=== PATIENT | female | born 1970 | race Caucasian/White ===

== ENCOUNTER → 2016-09-07 | Outpatient (CLI) | payer MEDICAID | LOC: CIMAGING 16:09 | PROVIDERS: ATTEND Family Medicine | DX: N88.8 Other specified noninflammatory disorders of cervix uteri (principal) | CPT/HCPCS: 76856-PO ==

== ENCOUNTER → 2016-10-01 | Outpatient (CLI) | payer MEDICAID | LOC: FIMAGING 12:17 | PROVIDERS: ATTEND Family Medicine | DX: Z12.31 Encounter for screening mammogram for malignant neoplasm of breast (principal) | CPT/HCPCS: G0202 ==

== ENCOUNTER 2017-01-16 12:34 | Outpatient (CLI) | payer MEDICAID ==
[~2017-01-16 12:34] MED LIST: DEXMEDETOMIDINE HCL 200 MCG in NS 50 ML IV ONE
[2017-01-16] MEDS ORDERED: FLUMAZENIL 0.5 MG/5 ML MDV IVP ONE (13:16)
[2017-01-16] MEDS ORDERED: MIDAZOLAM 2 MG/2 ML VIAL ONE (13:16)
[2017-01-16] MEDS ORDERED: NALOXONE HCL 0.4 MG/ML INJ ONE (13:16)
[2017-01-16] MEDS ORDERED: fentaNYL 100 MCG/2 ML INJ ONE (13:17)
[2017-01-16 15:21] VITALS: PULSE 67; TEMP 97.5
[2017-01-16 16:26] VITALS: RESP 14
[2017-01-16 18:05] VITALS: O2SAT 96
[2017-01-16 18:09] VITALS: BP 132/94
== END 2017-01-16 18:00 | disposition home or self-care (01) ==
LOC: FIMAGING 12:34 → MERGE 13:00 → FIMAGING 18:00
DX: Z53.8 Procedure and treatment not carried out for other reasons (principal); R22.31 Localized swelling, mass and lump, right upper limb; M62.81 Muscle weakness (generalized)
CPT/HCPCS: J2250; J2310; J3010

== ENCOUNTER → 2017-02-18 | Outpatient (CLI) | payer MEDICAID ==
[~2017-02-18] MED LIST changes: +CALCIUM CHLORIDE 1 GM/10 ML INJ ONE; +DEXAMETHASONE 10 MG/ML VIAL ONE; -DEXMEDETOMIDINE HCL 200 MCG in NS 50 ML IV ONE; +ONDANSETRON 4 MG/2 ML VIAL ONE; +PHENYLEPHRINE 10 MG/ML SDV ONE; +PROPOFOL/EMULSION 500 MG/50 ML BOTTLE IV ONE; +SODIUM CL 0.9% 20 ML VIAL ONE; +fentaNYL 100 MCG/2 ML INJ IVP PRN; +fentaNYL 100 MCG/2 ML INJ ONE
--- NOTE | 2017-02-18 17:19 | POSTANESTH ---
Post Anesthetic Evaluation Cardiovascular Status: Normal, Stable, Similar to Pre-Op Cond Respiratory Status: Normal, Stable, Similar to Pre-op Cond. Level of Consciousness/Mental Status: Can Participate in Eval Pain Control: Adequate, Prn Tx Ordered Nausea/Vomiting Control: Adequate, Prn Tx Ordered Complications Possibly Related to Anesthesia: None Noted
[2017-02-18 17:38] VITALS: TEMP 97.5
[2017-02-18 17:42] VITALS: PULSE 73; O2SAT 100
[2017-02-18 17:43] VITALS: BP 138/72; RESP 19
== END ==
LOC: FSGY 12:24
DX: M19.031 Primary osteoarthritis, right wrist (principal); M51.37 Other intervertebral disc degeneration, lumbosacral region; M22.41 Chondromalacia patellae, right knee
CPT/HCPCS: J1100; J2370; J2405; J2704; J3010

== ENCOUNTER 2017-03-28 14:57 | Emergency (ER) | payer MEDICAID ==
[2017-03-28 15:14] VITALS: RESP 18
[2017-03-28 15:52] LABS: % IMMATURE GRANULYOCYTES 0.5 % (0.0-1.1); ABSOLUTE IMMATURE GRANULOCYTES 0.05 10^3/uL (0.00-0.10); ADD DIFF? NO; ADD MORPH? NO; ADD SCAN? NO; ATYPICAL LYMPHOCYTE FLAG 0 (0-99); FRAGMENT RBC FLAG 0 (0-99); HEMATOCRIT 45.4 % (38.0-47.0); HEMOGLOBIN 14.9 g/dL (12.6-16.3); LEFT SHIFT FLG 10 (0-99); LIPEMIA HEMOLYSIS FLAG 80 (0-99); MEAN CELL HEMOGLOBIN 30.7 pg (27.9-34.1); MEAN CELL HEMOGLOBIN CONCENTR. 32.8 g/dL (32.4-36.7); MEAN CELL VOLUME 93.6 fL (81.5-99.8); MEAN PLATELET VOLUME 12.5 fL (8.7-11.7); PLATELET CLUMPS FLAG 10 (0-99); PLATELET COUNT 194 10^3/uL (150-400); RED BLOOD CELL COUNT 4.85 10^6/uL (4.18-5.33); RED CELL DISTRIBUTION WIDTH 13.3 % (11.5-15.2)
[2017-03-28 15:56] LABS: ANION GAP 16 mEq/L (8-16); CALCIUM 9.3 mg/dL (8.5-10.4); CARBON DIOXIDE 24 mEq/l (22-31); CHLORIDE 101 mEq/L (97-110); CREATININE 0.8 mg/dL (0.6-1.0); ETHANOL SERUM < 10 mg/dL (0-10); GLOMERULAR FILTRATION RATE > 60; GLUCOSE 80 mg/dL (70-100); SODIUM 141 mEq/L (134-144)
--- NOTE | 2017-03-28 16:21 | EDPHY ---
H & P Stated Complaint: SI, voluntary Time Seen by Provider: 03/28/17 15:37 HPI/ROS: CHIEF COMPLAINT: Suicidal thoughts, chronic pain HISTORY OF PRESENT ILLNESS: The patient presents to the ED with suicidal thoughts without a specific plan. She attributes these thoughts to a general decline in her health and living with chronic pain. The patient is currently under the care of [facility]. She currently is taking Prozac and hydroxyzine for depression. She uses Ambien as needed for insomnia and Xanax for anxiety. The patient has had a cough for the past several days with nasal congestion. The patient denies any intentional overdose. She has no complaints of acute abdominal pain. She denies additional acute complaints. REVIEW OF SYSTEMS: A comprehensive 10 point review of systems is otherwise negative aside from elements mentioned in the history of present illness. 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 , HTN, hypothyroid, asthma - Social History Smoking Status: Never smoked - Physical Exam Exam: General Appearance: Alert, no distress Eyes: Pupils equal and round no pallor or injection ENT, Mouth: Mucous membranes moist Respiratory: There are no retractions, lungs are clear to auscultation Cardiovascular: Regular rate and rhythm Gastrointestinal: Abdomen is soft and nontender, no masses, bowel sounds normal Neurological: A&O, normal motor function, normal sensory exam, normal cranial nerves Skin: Warm and dry, no rashes Musculoskeletal: Neck is supple nontender Extremities: symmetrical, full range of motion Psychiatric: Alert and oriented x3, non agitated, cooperative, normal speech pattern, appropriate thought content, reports depression/anxiety and suicidal thoughts. Denies suicidal plan. Constitutional: Initial Vital Signs Temperature (C) 37.2 C 03/28/17 14:57 Heart Rate 74 03/28/17 14:57 Respiratory Rate 18 03/28/17 14:57 Blood Pressure 110/63 03/28/17 14:57 O2 Sat (%) 99 03/28/17 14:57 O2 Delivery Mode Room Air Allergies/Adverse Reactions: acetaminophen [From Vicodin] Allergy (Verified 02/13/17 15:05) hydrocodone [From Vicodin] Allergy (Verified 02/13/17 15:05) hydrocodone bitartrate [From Vicodin] Allergy (Verified 02/13/17 15:05) CT Contrast Allergy (Uncoded 12/10/16 16:31) Home Medications: Medication Instructions Recorded Sennosides [Senna] 8.6 mg PO HS 04/27/15 Lisinopril [Zestril] 5 mg PO DAILY 04/28/15 FLUoxetine HCL [Fluoxetine HCl] 60 mg PO DAILY 11/30/15 Divalproex ER [Depakote ER 500 MG 500 mg PO BID 11/07/16 (*)] Furosemide [Lasix 20 MG (*)] 20 mg PO DAILY 11/07/16 Lidocaine 5% [Lidoderm 5% Patch 1 ea TD DAILY 11/07/16 (*)] Ondansetron Odt [Zofran Odt 4 mg 4 mg PO Q4 PRN 11/07/16 (*)] Topiramate [Topamax 25MG (*)] 25 mg PO DAILY 11/07/16 hydrOXYzine HCL [Vistaril 25MG] 50 mg PO HS 11/07/16 tiZANidine HCL [Zanaflex] 4 mg PO TID PRN 11/07/16 Levothyroxine [Synthroid 100 mcg 100 mcg PO DAILY06 12/10/16 (*)] Albuterol Hfa Anes Only [Proair 2 puffs IH QID PRN 01/15/17 Hfa Icu (*)] SUMAtriptan 0 mg SC DAILY PRN 01/15/17 Cyclobenzaprine [Flexeril 10 MG 10 mg PO TID PRN 03/28/17 (*)] Ergocalciferol [Vitamin D2 (*)] 50,000 unit PO ALVAREZ 03/28/17 Fluticasone/Salmeter 100/50Mcg 1 puffs IH DAILY 03/28/17 [Advair 100/50 (*)] Gabapentin [Neurontin 300 MG (*)] 300 mg PO BID 03/28/17 Hydrochlorothiazide [HCTZ (*)] 25 mg PO DAILY 03/28/17 Zolpidem Tartrate [Ambien 10 mg] 10 mg PO HS 03/28/17 oxyCODONE/APAP [Percocet 1 tab PO TID PRN 03/28/17 (*)] Medical Decision Making - Diagnostics Imaging Results: Imaging Impressions Chest X-Ray 03/28/17 16:13 Impression: Normal chest. ED Course/Re-evaluation: Given the patient's complaints of acute cough a chest x-ray was obtained which demonstrated no evidence of an acute pneumonia. The patient was medically cleared for psychiatric evaluation. The patient is here on a voluntary basis. She does contract for safety. The patient was evaluated by Psychiatry. At 7:30 a.m. they informed me they are evaluating possible placement in a CSU. They do not feel the patient needs to be on an M1 psychiatric hold as she is here voluntarily. The patient has remained stable on my shift. Psychiatric disposition is still pending. The patient return of Dr. Mckinley shift change. Differential Diagnosis: Differential diagnosis considered includes asthma, bronchitis, pneumonia, suicidal ideation - Data Points Laboratory Results: Laboratory Results 03/28/17 15:40 03/28/17 15:40 03/28/17 03/28/17 03/28/17 15:40 15:40 15:40 WBC 9.50 10^3/uL 10^3/uL (3.80-9.50) RBC 4.85 10^6/uL 10^6/uL (4.18-5.33) Hgb 14.9 g/dL g/dL (12.6-16.3) Hct 45.4 % % (38.0-47.0) MCV 93.6 fL fL (81.5-99.8) MCH 30.7 pg pg (27.9-34.1) MCHC 32.8 g/dL g/dL (32.4-36.7) RDW 13.3 % % (11.5-15.2) Plt Count 194 10^3/uL 10^3/uL (150-400) MPV 12.5 fL H fL (8.7-11.7) Neut % (Auto) 70.5 % % (39.3-74.2) Lymph % (Auto) 18.4 % % (15.0-45.0) [place] % (Auto) 7.2 % % (4.5-13.0) Eos % (Auto) 2.9 % % (0.6-7.6) Baso % (Auto) 0.5 % % (0.3-1.7) Nucleat RBC Rel Count 0.0 % % (0.0-0.2) Absolute Neuts (auto) 6.69 10^3/uL H 10^3/uL (1.70-6.50) Absolute Lymphs (auto) 1.75 10^3/uL 10^3/uL (1.00-3.00) Absolute Monos (auto) 0.68 10^3/uL 10^3/uL (0.30-0.80) Absolute Eos (auto) 0.28 10^3/uL 10^3/uL (0.03-0.40) Absolute Basos (auto) 0.05 10^3/uL 10^3/uL (0.02-0.10) Absolute Nucleated RBC 0.00 10^3/uL 10^3/uL (0-0.01) Immature Gran % 0.5 % % (0.0-1.1) Immature Gran # 0.05 10^3/uL 10^3/uL (0.00-0.10) Sodium 141 mEq/L mEq/L (134-144) Potassium 4.0 mEq/L mEq/L (3.5-5.2) Chloride 101 mEq/L mEq/L (97-110) Carbon Dioxide 24 mEq/l mEq/l (22-31) Anion Gap 16 mEq/L mEq/L (8-16) BUN 17 mg/dL mg/dL (7-23) Creatinine 0.8 mg/dL mg/dL (0.6-1.0) Estimated GFR > 60 Glucose 80 mg/dL mg/dL (70-100) Calcium 9.3 mg/dL mg/dL (8.5-10.4) Urine Opiates Screen NEGATIVE (NEGATIVE) Urine Barbiturates NEGATIVE (NEGATIVE) Ur Phencyclidine Scrn NEGATIVE (NEGATIVE) Ur Amphetamine Screen NEGATIVE (NEGATIVE) U Benzodiazepines Scrn NEGATIVE (NEGATIVE) Urine Cocaine Screen NEGATIVE (NEGATIVE) U Marijuana (THC) Screen NEGATIVE (NEGATIVE) Ethyl Alcohol < 10 mg/dL mg/dL (0-10) Departure - Departure Clinical Impression: Suicidal ideation, Chronic pain Condition: Good Referrals: NONE *PRIMARY CARE P,. [Primary Care Provider] - As per Instructions
[2017-03-28 21:57] VITALS: O2SAT 96
[2017-03-29 02:41] VITALS: BP 102/54; PULSE 72; TEMP 98.1
== END 2017-03-29 03:10 ==
LOC: EDUNIT#
DX: R45.851 Suicidal ideations (principal); G89.29 Other chronic pain; J45.909 Unspecified asthma, uncomplicated; I10 Essential (primary) hypertension
CPT/HCPCS: 80305; G0480

== ENCOUNTER 2017-04-04 10:53 | Emergency (ER) | payer MEDICAID ==
[2017-04-04 11:00] VITALS: TEMP 98.2
[2017-04-04] MEDS ORDERED: DEXAMETHASONE 10 MG/ML VIAL IVP ONE (12:47)
[2017-04-04] MEDS ORDERED: KETOROLAC 30 MG/1 ML SDV IVP ONE (12:47)
[2017-04-04] MEDS ORDERED: METOCLOPRAMIDE 10 MG/2 ML VIAL IVP ONE (12:47)
--- NOTE | 2017-04-04 12:58 | EDPHY ---
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 , HTN, hypothyroid, asthma - Social History Smoking Status: Never smoked Constitutional: Initial Vital Signs Temperature (C) 36.8 C 04/04/17 10:58 Heart Rate 84 04/04/17 10:58 Respiratory Rate 16 04/04/17 10:58 Blood Pressure 112/74 04/04/17 10:58 O2 Sat (%) 98 04/04/17 10:58 O2 Delivery Mode Room Air Allergies/Adverse Reactions: acetaminophen [From Vicodin] Allergy (Verified 04/04/17 10:56) hydrocodone [From Vicodin] Allergy (Verified 04/04/17 10:56) hydrocodone bitartrate [From Vicodin] Allergy (Verified 04/04/17 10:56) CT Contrast Allergy (Uncoded 12/10/16 16:31) Home Medications: Medication Instructions Recorded Sennosides [Senna] 8.6 mg PO HS 04/27/15 Lisinopril [Zestril] 5 mg PO DAILY 04/28/15 FLUoxetine HCL [Fluoxetine HCl] 60 mg PO DAILY 11/30/15 Divalproex ER [Depakote ER 500 MG 500 mg PO BID 11/07/16 (*)] Furosemide [Lasix 20 MG (*)] 20 mg PO DAILY 11/07/16 Lidocaine 5% [Lidoderm 5% Patch 1 ea TD DAILY 11/07/16 (*)] Ondansetron Odt [Zofran Odt 4 mg 4 mg PO Q4 PRN 11/07/16 (*)] Topiramate [Topamax 25MG (*)] 25 mg PO DAILY 11/07/16 hydrOXYzine HCL [Vistaril 25MG] 50 mg PO HS 11/07/16 tiZANidine HCL [Zanaflex] 4 mg PO TID PRN 11/07/16 Levothyroxine [Synthroid 100 mcg 100 mcg PO DAILY06 12/10/16 (*)] Albuterol Hfa Anes Only [Proair 2 puffs IH QID PRN 01/15/17 Hfa Icu (*)] SUMAtriptan 0 mg SC DAILY PRN 01/15/17 Cyclobenzaprine [Flexeril 10 MG 10 mg PO TID PRN 03/28/17 (*)] Ergocalciferol [Vitamin D2 (*)] 50,000 unit PO ALVAREZ 03/28/17 Fluticasone/Salmeter 100/50Mcg 1 puffs IH DAILY 03/28/17 [Advair 100/50 (*)] Gabapentin [Neurontin 300 MG (*)] 300 mg PO BID 03/28/17 Hydrochlorothiazide [HCTZ (*)] 25 mg PO DAILY 03/28/17 Zolpidem Tartrate [Ambien 10 mg] 10 mg PO HS 03/28/17 oxyCODONE/APAP 5/325 [Percocet 1 tab PO TID PRN 03/28/17 5/325 (*)] AZITHROMYCIN [Z-PACK] 250 mg PO DAILY #1 packet 04/04/17 Albuterol [Proventil Inhaler] 1 - 2 puffs IH Q4 #1 mdi 04/04/17 HYDROcodone/HOMATROPINE HYCODA 1 tsp PO Q4-6PRN PRN #120 ml 04/04/17 [Hycodan Syrup (RX)] IMITREX 04/04/17 Medical Decision Making ED Course/Re-evaluation: CHIEF COMPLAINT: Cough cold fever migraine HISTORY OF PRESENT ILLNESS: 46-year-old female who has been sick for 10 days with an upper respiratory type infection and chest congestion. She has a productive cough. It has been keeping her up at night. She has had some minor fevers and chills. She also developed a migraine headache today. She has usual migraine headaches and often gets some when she is sick. She denies the fact that this migraines any different than her usual migraines. REVIEW OF SYSTEMS: A 10 point review of systems was performed and is negative with the exception of the elements mentioned in the history of present illness. PHYSICAL EXAM: HR, BP, O2 Sat, RR. Temp noted General Appearance: Alert, well hydrated, appropriate, and non-toxic appearing. Head: Atraumatic without scalp tenderness or obvious injury Eyes: Pupils equal, round, reactive to light and accommodation, EOMI, no trauma , no injection. Ears: Clear bilaterally, no perforation, normal landmarks Nose: Atraumatic, no rhinorrhea, clear. Throat: There is no erythema or exudates, no lesions, normal tonsils, mucus membranes moist. Neck: Supple, 2+ carotid upstroke, nontender, no lymphadenopathy. Respiratory: No retractions, no distress, no wheezes, and no accessory muscle use. Coarse rhonchi in all lung valladares with possible focal decrease in the left base. Cardiovascular: Regular rate and rhythm, no murmurs, rubs, or gallops. Bilateral carotid, radial, dorsalis pedis, and posterior tibial pulses intact. Good capillary refill all extremities. Gastrointestinal: Abdomen is soft, nontender, non-distended, no masses, no rebound, no guarding, no peritoneal signs. Musculoskeletal: Normal active ROM of all extremities, atraumatic. Neurological: Alert, appropriate, and interactive. The patient has normal DTRs and non-focal cranial nerves, motor, sensory, and cerebellar exam. Skin: No rashes, good turgor, no nodules on palpation. 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 MEDICAL DECISION MAKING: This patient is a classic migraine headache which I have treated effectively with Reglan, Toradol, Decadron and IV fluids, and 25 mg of Benadryl. Additionally a gave her a gram of ceftriaxone as she may have a walking pneumonia and at the very least significant bronchitis and she has been sick for 10 days and getting worse. I will discharge the patient on azithromycin, Hycodan elix, Proventil inhaler. Her migraines resolved. - Data Points Medications Given: Ceftriaxone Sodium/Dextrose (Rocephin 1 Gm (Premix)) 50 mls @ 100 mls/hr IV EDNOW ONE PRN Reason: Protocol Stop: 04/04/17 13:17 Last Admin: 04/04/17 12:55 Dose: 50 mls Discontinued Medications Dexamethasone (Decadron Injection) 10 mg IVP EDNOW ONE Stop: 04/04/17 12:48 Last Admin: 04/04/17 12:55 Dose: 10 mg Diphenhydramine HCl (Benadryl Injection) 25 mg IVP EDNOW ONE Stop: 04/04/17 12:48 Last Admin: 04/04/17 12:54 Dose: 25 mg Ketorolac Tromethamine (Toradol) 30 mg IVP EDNOW ONE Stop: 04/04/17 12:48 Last Admin: 04/04/17 12:55 Dose: 30 mg Metoclopramide HCl (Reglan Injection) 10 mg IVP EDNOW ONE Stop: 04/04/17 12:48 Last Admin: 04/04/17 12:54 Dose: 10 mg Departure - Departure Disposition: Home, Routine, Self-Care Clinical Impression: Acute bronchitis Qualifiers: Bronchitis organism: other organism Qualified Code(s): J20.8 - Acute bronchitis due to other specified organisms Migraine headache Qualifiers: Migraine type: with aura Status migrainosus presence: with status migrainosus Intractability: intractable Qualified Code(s): G43.111 - Migraine with aura, intractable, with status migrainosus Condition: Good Instructions: Acute Bronchitis (ED), Migraine Headache (ED) Referrals: Martha Keyes MD [Primary Care Provider] - As per Instructions Prescriptions: Albuterol [Proventil Inhaler] 1 - 2 puffs IH Q4 #1 mdi AZITHROMYCIN [Z-PACK] 250 mg PO DAILY #1 packet HYDROcodone/HOMATROPINE HYCODA [Hycodan Syrup (RX)] 1 tsp PO Q4-6PRN PRN #120 ml PRN Reason: Cough, Moderate
[2017-04-04 13:56] VITALS: BP 130/77; PULSE 70; RESP 14; O2SAT 96
--- NOTE | 2017-04-04 14:32 | ASDISCHSUM ---
Discharge Information Plan Status:Home with No Needs Medically Cleared to Leave: Discharge Date:04/04/2017 01:55 PM CM D/C Disposition:Home, Routine, Self-Care ADT D/C Disposition:Home, Routine, Self-Care Projected Discharge Date:04/04/2017 01:55 PM Transportation at D/C:Medicaid Transportation Discharge Delay Reason: Follow-Up Date:04/04/2017 01:55 PM Discharge Slot: Final Diagnosis: Placement Information Patient Contact Information Contact Name:ARCENIO Relationship:Murray Address: Work Phone: City: [facility] Phone: State/Zip Code: Email: Financial Information Financial Class: Primary Plan Desc:[employer] Primary Plan Number:[id number] Secondary Plan Desc: Secondary Plan Number: Assessment Information LACE LACE Acuity / Level of Care Answers: No. Emergency dept visits in Answers: 2 last 6 months Score: 2 Date Signed: 04/04/2017 02:31 PM Electronically Signed By:Kenzie Villaseñor RN Intervention Information
--- NOTE | 2017-04-05 10:46 | ASMTCMCOM ---
CM Note CM Note Notes: Patient states she is staying with family members in [place]. This CM called and arranged a [employer] cab for patient to be transported back to [address] [place] [address]. Patient confirmed her cell phone # [phone]. Patient is followed by Martha Keyes at [facility] [place] [facility] and plans to follow up with her next week. CM available for further assistance. Date Signed: 04/05/2017 10:46 AM Electronically Signed By:Kenzie Villaseñor RN
== END 2017-04-04 13:55 | disposition home or self-care (01) ==
DX: J20.8 Acute bronchitis due to other specified organisms (principal); G43.111 Migraine with aura, intractable, with status migrainosus; I10 Essential (primary) hypertension; J45.909 Unspecified asthma, uncomplicated
CPT/HCPCS: 96365; J0696; J1100; J1200; J1885; J2765